=== PATIENT | female | born 1985 | race Caucasian/White ===

== ENCOUNTER 2022-02-10 10:33 | Outpatient (RCR) | payer OTHER, SELFPAY ==
--- OUTSIDE RECORDS SUMMARY | 2022-02-05 09:14 | XMS_ITS | Continuity of Care Document ---
:1985 Demographics Address [facility] [address] [place] [id number] Home Phone Email Address REFUSED Preferred Language [place] Marital Status Never [employer] Affiliation Unknown Race White Ethnic Group Unknown Author Allergies, Adverse Reactions, Alerts No known allergies Social History Smoking Status Status Start Date End Date Date of Observat ion Current some day March 05, 2021 4:58pm smoker Additional Data Assigned Sex Female Problems Active Problems Medical Problem Onset Date Status Orbital laceration Active Traumatic hematoma of right eyelid Activ e Medications Medication Status Dose Units Route Directions Qty Days Start End Ins tructions Date Date Acetaminophen Active 500-1 MG PO Every 6 100 NO MORE THAN (Tylenol 000 Hours as 4000 MG/ DAY Extra needed Strength) 500 Mg TAB Biotin Active 10 MG PO Daily as needed Ibuprofen Active 200-4 MG PO Every 6 100 00 Hours as needed Multivitamins Active 1 TAB PO Daily as 100 (Multivitamin needed /Minerals) TAB Amoxicillin/C Discontin 1 TAB PO Twice Daily 03 March Se ptemb lavulanate ued For 10 Days , er 8th, Potassium 2020 2020 (Amoxicillin 1:21pm 2:12pm & Pot Clavulanate) 875 Mg/125 Mg TAB Doxycycline Discontin 100 MG PO Twice A Day 10 Prabhakar h (Monohydrate) ued 2020 9:52am No Home Meds Discontin August ued 2021 12:42pm Immunizations Immunization Event Date Not Given Dose Air Bag Buffer Lot Vac cine Reason Number Number Informatio n Statement (VIS) Deta il COVID-19 Moderna September 15 MODERNA [id number] 2020 COVID-19 Moderna October 22 MODERNA US [id number] 2020 Advance Directives Advance Directive Response Recorded Date/Time Does Pt have Health Care No July 25, 2015 2:05am Directive? Has patient completed a No June 23 3:57pm Health Care Directive? Insurance Providers Guarantor Shelli Naidu Address [address] [address] Contact Info. Home Phone: Payer Policy Id Coverage Id Subscriber's Subscriber Id Effective E xpiration Name Date Date Medica2 [id number] Shelli Naidu Plan of Treatment Future Tests Future scheduled test information is unavailable Pending Tests Pending diagnostic test information is unavailable Future Visits Future appointment information is unavailable Referrals to Other Providers Reason for Referral Referral Start Date Provider Provider Conta ct Provider Address Information None None Future Procedures Future procedure information is unavailable Future Medications Future medication information is unavailable Patient Instructions See Additional Instructions Skin Adhesive Care (ED) Facial Laceration (ED)
[2022-02-10 11:24] LABS: Slide Review Reflex No
[2022-02-10 11:32] LABS: Basophils Absolute Auto 0.16 K/uL (0.00-0.30); Basophils Percent Auto 1.6 % (0.0-3.0); Eosinophils Absolute Auto 0.31 K/uL (0.00-0.50); Eosinophils Percent Auto 3.1 % (0.0-7.0); Hematocrit 45.7 % (33.0-51.0); Hemoglobin* 15.2 gm/dL (12.0-16.0); Immature Granulocytes Abs Auto 0.04 K/uL (0.00-0.30); Lymphocytes Absolute Auto 2.69 K/uL (0.90-2.90); Lymphocytes Percent Auto 27.2 % (20-44); Mean Corpuscular HGB Conc 33 gm/dL (32-36); Mean Corpuscular Hemoglobin 29 pg (26-34); Mean Corpuscular Volume 88 fL (80-100); Monocytes Percent Auto 5.4 % (0.0-11.0); Neutrophils Absolute Auto 6.15 K/uL (1.7-7.0); Neutrophils Percent Auto 62.3 % (42.0-72.0); Platelet Count* 411 K/uL (140-440); RDW Coefficient of Variation % 14.4 % (11.5-15.5); Red Blood Count 5.22 m/uL (4.00-5.20); White Blood Count* 9.88 K/uL (4.50-11.00)
[2022-02-10 11:44] LABS: Albumin* 4.8 g/dL (3.3-5.0); Chloride* 107 mmol/L (96-114); Sodium* 139 mmol/L (135-149)
[2022-02-10 11:47] LABS: Alkaline Phosphatase* 36 U/L (40-150); Aspartate Amino Transferase* 24 U/L (12-35); Bilirubin Total* 0.6 mg/dL (0.1-1.5); Blood Urea Nitrogen* 12 mg/dL (5-24); Calcium* 9.1 mg/dL (8.4-10.6); Carbon Dioxide* 25 mmol/L (20-32); Creatinine* 0.6 mg/dL (0.5-1.5); Est. Creatinine Clearance* 128.48; Estimated Glomerular Filt Rate 120.72; Glucose* 95 mg/dL (60-115); Total Protein* 7.2 g/dL (6.0-8.3)
[2022-02-10 11:48] LABS: Alanine Aminotransferase* 23 U/L (4-35)
[2022-02-10 12:56] LABS: Lactate Dehydrogenase* 513 U/L (313-618)
== END 2022-02-11 23:59 | disposition home or self-care (01) ==
LOC: CCIC 10:33
PROVIDERS: Clinical Nurse Specialist; PCP Physician Assistant; Visit Provider Internal Medicine Hematology & Oncology
DX: D47.1 Chronic myeloproliferative disease (principal)
CPT/HCPCS: 36415; 80053; 83615; 85025; 99212; 99213; 99214

== ENCOUNTER 2022-08-04 09:38 | Outpatient (RCR) | payer OTHER, SELFPAY ==
[2022-08-04 10:12] LABS: Basophils Absolute Auto 0.08 K/uL (0.00-0.30); Basophils Percent Auto 0.9 % (0.0-3.0); Eosinophils Absolute Auto 0.29 K/uL (0.00-0.50); Eosinophils Percent Auto 3.4 % (0.0-7.0); Hematocrit 43.4 % (33.0-51.0); Hemoglobin* 14.7 gm/dL (12.0-16.0); Immature Granulocytes Abs Auto 0.05 K/uL (0.00-0.30); Immature Granulocytes Pct Auto 0.6 %; Lymphocytes Absolute Auto 2.42 K/uL (0.90-2.90); Lymphocytes Percent Auto 28.6 % (20-44); Mean Corpuscular HGB Conc 34 gm/dL (32-36); Mean Corpuscular Hemoglobin 30 pg (26-34); Mean Corpuscular Volume 87 fL (80-100); Monocytes Percent Auto 5.1 % (0.0-11.0); Neutrophils Percent Auto 61.4 % (42.0-72.0); Platelet Count* 334 K/uL (140-440); RDW Coefficient of Variation % 13.2 % (11.5-15.5); Red Blood Count 4.97 m/uL (4.00-5.20); White Blood Count* 8.47 K/uL (4.50-11.00)
[2022-08-04 10:18] LABS: Slide Review Reflex No
[2022-08-04 10:28] LABS: Albumin* 4.7 g/dL (3.3-5.0); Chloride* 108 mmol/L (96-114); Potassium* 4.5 mmol/L (3.6-5.1); Sodium* 139 mmol/L (135-149)
[2022-08-04 10:30] LABS: Bilirubin Total* 0.6 mg/dL (0.1-1.5); Carbon Dioxide* 24 mmol/L (20-32); Creatinine* 0.5 mg/dL (0.5-1.5); Estimated Glomerular Filt Rate 126 ml/min
[2022-08-04 10:31] LABS: Alanine Aminotransferase* 35 U/L (4-35); Alkaline Phosphatase* 44 U/L (40-150); Aspartate Amino Transferase* 27 U/L (12-35); Blood Urea Nitrogen* 13 mg/dL (5-24); Calcium* 9.2 mg/dL (8.4-10.6); Glucose* 101 mg/dL (60-115); Lactate Dehydrogenase* 187 U/L (120-246); Total Protein* 7.3 g/dL (6.0-8.3)
--- NOTE | 2022-09-03 11:24 | ONC.NURNOTE ---
Reviewed with pt changes in [facility] program and transition of Dr. Valdes to [facility] returning Spring 2022. Pt would like to continue care here; due January 2023.
--- NOTE | 2022-12-30 15:54 | ONC.NURNOTE ---
Addendum entered by Elvi Freedman RN 01/06/23 11:16: referral faxed to [facility] [phone] Shelli was informed Original Note: Eleanor called requesting a new referral for genetic counselor at [facility]- the previous referral has
== END 2023-01-31 23:59 | disposition home or self-care (01) ==
LOC: CCIC 09:38
PROVIDERS: PCP Physician Assistant; Visit Provider Internal Medicine Hematology & Oncology
DX: D47.1 Chronic myeloproliferative disease (principal)
CPT/HCPCS: 36415; 80053; 83615; 85025; 99212; 99213; 99214

== ENCOUNTER 2023-03-08 13:43 | Outpatient (RCR) | payer OTHER, SELFPAY ==
[2023-03-08 14:22] LABS: Basophils Absolute Auto 0.12 K/uL (0.00-0.30); Basophils Percent Auto 1.2 % (0.0-3.0); Eosinophils Absolute Auto 0.36 K/uL (0.00-0.50); Eosinophils Percent Auto 3.6 % (0.0-7.0); Hematocrit 46.1 % (33.0-51.0); Hemoglobin* 15.1 gm/dL (12.0-16.0); Immature Granulocytes Abs Auto 0.08 K/uL (0.00-0.30); Immature Granulocytes Pct Auto 0.8 %; Lymphocytes Absolute Auto 2.39 K/uL (0.90-2.90); Lymphocytes Percent Auto 23.9 % (20-44); Mean Corpuscular HGB Conc 33 gm/dL (32-36); Mean Corpuscular Hemoglobin 29 pg (26-34); Mean Corpuscular Volume 89 fL (80-100); Monocytes Percent Auto 4.5 % (0.0-11.0); Neutrophils Absolute Auto 6.58 K/uL (1.7-7.0); Platelet Count* 415 K/uL (140-440); RDW Coefficient of Variation % 13.6 % (11.5-15.5); Red Blood Count 5.19 m/uL (4.00-5.20); White Blood Count* 9.98 K/uL (4.50-11.00)
[2023-03-08 14:23] LABS: Slide Review Reflex No
[2023-03-08 14:41] LABS: Albumin* 4.7 g/dL (3.3-5.0); Chloride* 102 mmol/L (96-114); Sodium* 137 mmol/L (135-149)
[2023-03-08 14:42] LABS: Potassium* 4.7 mmol/L (3.6-5.1)
[2023-03-08 14:43] LABS: Creatinine* 0.6 mg/dL (0.5-1.5); Estimated Glomerular Filt Rate 120 ml/min
[2023-03-08 14:44] LABS: Alanine Aminotransferase* 24 U/L (4-35); Alkaline Phosphatase* 40 U/L (40-150); Aspartate Amino Transferase* 26 U/L (12-35); Bilirubin Total* 0.8 mg/dL (0.1-1.5); Blood Urea Nitrogen* 11 mg/dL (5-24); Carbon Dioxide* 27 mmol/L (20-32); Glucose* 94 mg/dL (60-115); Lactate Dehydrogenase* 212 U/L (120-246); Total Protein* 7.5 g/dL (6.0-8.3)
[2023-03-08 14:45] LABS: Calcium* 9.4 mg/dL (8.4-10.6)
== END 2023-09-04 23:59 | disposition home or self-care (01) ==
LOC: CCIC 13:43
PROVIDERS: PCP Student in an Organized Health Care Education/Training Program; Visit Provider Internal Medicine Hematology & Oncology
DX: D47.1 Chronic myeloproliferative disease (principal)
CPT/HCPCS: 36415; 80053; 83615; 85025; 99212; 99213; 99214

== ENCOUNTER 2024-06-29 11:00 | Outpatient (RCR) | payer BC, SELFPAY ==
[2024-01-02 13:41] LABS: Basophils Absolute Auto 0.14 K/uL (0.00-0.30); Basophils Percent Auto 1.4 % (0.0-3.0); Eosinophils Absolute Auto 0.29 K/uL (0.00-0.50); Hematocrit 44.8 % (33.0-51.0); Hemoglobin* 14.6 gm/dL (12.0-16.0); Immature Granulocytes Abs Auto 0.06 K/uL (0.00-0.30); Immature Granulocytes Pct Auto 0.6 %; Lymphocytes Percent Auto 22.4 % (20-44); Mean Corpuscular HGB Conc 33 gm/dL (32-36); Mean Corpuscular Hemoglobin 30 pg (26-34); Mean Corpuscular Volume 92 fL (80-100); Neutrophils Absolute Auto 6.53 K/uL (1.7-7.0); Neutrophils Percent Auto 66.6 % (42.0-72.0); Platelet Count* 388 K/uL (140-440); RDW Coefficient of Variation % 14.1 % (11.5-15.5); Red Blood Count 4.88 m/uL (4.00-5.20); White Blood Count* 9.81 K/uL (4.50-11.00)
[2024-01-02 13:42] LABS: Slide Review Reflex No
[2024-01-02 13:57] LABS: Albumin* 4.9 g/dL (3.3-5.0); Chloride* 107 mmol/L (96-114)
[2024-01-02 13:58] LABS: Potassium* 4.1 mmol/L (3.6-5.1); Sodium* 138 mmol/L (135-149)
[2024-01-02 14:00] LABS: Anion Gap 5 mEq/L (7-15); Aspartate Amino Transferase* 24 U/L (12-35); Bilirubin Total* 0.6 mg/dL (0.1-1.5); Carbon Dioxide* 26 mmol/L (20-32); Creatinine* 0.6 mg/dL (0.5-1.5); Estimated Glomerular Filt Rate 119 ml/min; Total Protein* 7.6 g/dL (6.0-8.3)
[2024-01-02 14:01] LABS: Alanine Aminotransferase* 17 U/L (4-35); Alkaline Phosphatase* 43 U/L (40-150); Blood Urea Nitrogen* 14 mg/dL (5-24); Glucose* 89 mg/dL (60-115); Lactate Dehydrogenase* 212 U/L (120-246)
[2024-06-29 11:22] LABS: Basophils Percent Auto 1.7 % (0.0-3.0); Eosinophils Percent Auto 3.7 % (0.0-7.0); Hematocrit 45.5 % (33.0-51.0); Immature Granulocytes Pct Auto 0.6 %; Lymphocytes Percent Auto 23.2 % (20-44); Mean Corpuscular HGB Conc 33 gm/dL (32-36); Mean Corpuscular Hemoglobin 31 pg (26-34); Mean Corpuscular Volume 93 fL (80-100); Monocytes Percent Auto 4.9 % (0.0-11.0); Neutrophils Percent Auto 65.9 % (42.0-72.0); Platelet Count* 463 K/uL (140-440); RDW Coefficient of Variation % 14.2 % (11.5-15.5); White Blood Count* 11.21 K/uL (4.50-11.00)
[2024-06-29 11:25] LABS: Slide Review Reflex No
[2024-06-29 11:29] LABS: Albumin* 4.6 g/dL (3.3-5.0); Chloride* 107 mmol/L (96-114); Potassium* 4.3 mmol/L (3.6-5.1); Sodium* 138 mmol/L (135-149)
[2024-06-29 11:31] LABS: Creatinine* 0.5 mg/dL (0.5-1.5); Estimated Glomerular Filt Rate 125 ml/min
[2024-06-29 11:32] LABS: Alanine Aminotransferase* 18 U/L (4-35); Alkaline Phosphatase* 40 U/L (40-150); Anion Gap 7 mEq/L (7-15); Aspartate Amino Transferase* 21 U/L (12-35); Bilirubin Total* 0.3 mg/dL (0.1-1.5); Blood Urea Nitrogen* 11 mg/dL (5-24); Calcium* 8.9 mg/dL (8.4-10.6); Carbon Dioxide* 24 mmol/L (20-32); Glucose* 89 mg/dL (60-115); Lactate Dehydrogenase* 194 U/L (120-246)
== END 2024-06-30 23:59 | disposition home or self-care (01) ==
LOC: CCIC 11:00
PROVIDERS: PCP Student in an Organized Health Care Education/Training Program; Referring Provider Student in an Organized Health Care Education/Training Program; Visit Provider Internal Medicine Hematology & Oncology
DX: D47.1 Chronic myeloproliferative disease (principal); R16.2 Hepatomegaly with splenomegaly, not elsewhere classified
CPT/HCPCS: 36415; 80053; 83615; 85025; 99213; 99214; G0463